=== PATIENT | male | born 1940 | race Caucasian/White ===

== ENCOUNTER 2019-04-22 11:28 | Inpatient (IN) ==
[2019-04-22] MEDS ORDERED: SODIUM CHLORIDE 0.9% 500 ML IV STA (12:07)
[2019-04-22 12:41] LABS: Basophils % 0.1 % (0.0-0.8); Hematocrit 44.4 VOL% (42.0-52.0); Hemoglobin 14.3 GM/DL (14.0-18.0); Immature Granulocytes % 0.8 %; Immature Granulocytes Absolute 0.12 #; Lymphocytes # 0.5 10*3/uL (1.4-4.0); Lymphocytes % 3.4 % (21.2-54.2); Mean Corpuscular HGB Conc 32.2 GM/DL (32-36); Mean Corpuscular Volume 91.4 FL (87-102); Mean Platelet Volume 9.8 FL (9.6-12.0); Monocytes % 5.1 % (1.7-12.7); Neutrophils % 90.6 % (38.7-73.9); Platelet Count 256 T/CUMM (130-400); Red Blood Count 4.86 MC/CUMM (3.8-5.5); Red Cell Distribution Width 14.2 % (9.3-17.3); White Blood Count 15.7 T/CUMM (4-12)
[2019-04-22 13:00] LABS: Albumin 4.2 G/DL (3.4-5.0); Bilirubin,Total 1.4 MG/DL (0.2-1.0); Osmolality,Calculated 286.3 MOS/KG (273-304); Total Protein 7.4 G/DL (6.4-8.3)
[2019-04-22 13:02] LABS: Band Neutrophils 10 % (0-10); Lymphocytes 2 % (20-55); Platelet Estimate Normal; Segmented Neutrophils 81 % (50-85); Total Cells Counted 100
[2019-04-22 13:03] LABS: Anisocytosis Slight; Macrocytosis Slight
[2019-04-22] MEDS ORDERED: DEXTROSE 50% 25 GM/50 ML VIAL IV STA (13:03)
[2019-04-22] MEDS ORDERED: DEXTROSE 50% 25 GM/50 ML SYRINGE IV ONE (13:06)
[2019-04-22 13:29] LABS: Apearance,Urine CLEAR (Clear); Bilirubin,Urine Negative (Negative); Blood, Urine Small mg/dL (Negative); Glucose,Urine (UA) Negative (Negative); Hyaline Casts,Urine 5 /LPF (0-3); Ketones,Urine 20 mg/dL (Negative); Mucus,Urine Occasional /LPF (Occasional); Nitrite,Urine Negative (Negative); Protein,Urine Negative; RBC,Urine 22 /HPF (0-4); Urine Color Yellow (Yellow); Urine Specific Gravity 1.014 (1.001-1.035); Urine Urobilinogen < 2.0 EU/DL (0.2-1.0); WBC,Urine 5 /HPF (0-6)
[2019-04-22] MEDS ORDERED: ONDANSETRON 4 MG/2 ML VIAL IV PRN (16:04)
[2019-04-22] MEDS ORDERED: ACETAMINOPHEN 325 MG TABLET PO PRN (16:04)
[2019-04-22] MEDS: SODIUM CHLORIDE 0.9% 1,000 ML IV SCH (19:39)
[2019-04-22] MEDS: DONEPEZIL 10 MG TABLET PO SCH (21:36)
[2019-04-22] MEDS: rOPINIRole 1 MG TABLET PO SCH (21:36)
[2019-04-22] MEDS: MEMANTINE 10 MG TABLET PO SCH (21:37)
[2019-04-22] MEDS: QUEtiapine 25 MG TABLET PO SCH (21:37)
[2019-04-22] MEDS: TAMSULOSIN 0.4 MG CAPSULE PO SCH (21:39)
[2019-04-22] MEDS: MULTIVITAMIN (BEROCCA) TABLET PO SCH (21:39)
[2019-04-23] MEDS: SODIUM CHLORIDE 0.9% 1,000 ML IV SCH ×3 (03:33→19:58)
[2019-04-23 05:49] LABS: Basophils % 0.2 % (0.0-0.8); Eosinophils % 0.3 % (0.00-10.9); Immature Granulocytes % 0.7 %; Immature Granulocytes Absolute 0.08 #; Lymphocytes # 1.1 10*3/uL (1.4-4.0); Lymphocytes % 9.5 % (21.2-54.2); Mean Corpuscular HGB Conc 33.3 GM/DL (32-36); Mean Corpuscular Volume 90.4 FL (87-102); Mean Platelet Volume 10.1 FL (9.6-12.0); Monocytes % 9.8 % (1.7-12.7); Neutrophils % 79.5 % (38.7-73.9); Platelet Count 182 T/CUMM (130-400); Red Blood Count 3.65 MC/CUMM (3.8-5.5); Red Cell Distribution Width 14.4 % (9.3-17.3); White Blood Count 11.6 T/CUMM (4-12)
[2019-04-23 06:16] LABS: Calcium 8.1 MG/DL (8.5-10.1); Osmolality,Calculated 288.3 MOS/KG (273-304); Risk Ratio 1.78; Thyroid Stimulating Hormone 0.654 uIU/ml (0.358-3.74); Total Protein 5.9 G/DL (6.4-8.3)
[2019-04-23] MEDS: PANTOPRAZOLE 40 MG TABLET PO SCH (09:09)
[2019-04-23] MEDS: ENOXAPARIN 40 MG/0.4 ML SYRINGE SUBCUT SCH (09:09)
[2019-04-23] MEDS: rOPINIRole 1 MG TABLET PO SCH (21:15)
[2019-04-23] MEDS: TAMSULOSIN 0.4 MG CAPSULE PO SCH (21:15)
[2019-04-23] MEDS: QUEtiapine 25 MG TABLET PO SCH (21:17)
[2019-04-23] MEDS: DONEPEZIL 10 MG TABLET PO SCH (21:18)
[2019-04-23] MEDS: MULTIVITAMIN (BEROCCA) TABLET PO SCH (21:18)
[2019-04-23] MEDS: MEMANTINE 10 MG TABLET PO SCH (21:18)
[2019-04-24] MEDS: SODIUM CHLORIDE 0.9% 1,000 ML IV SCH (04:08)
[2019-04-24 04:11] VITALS: BP 120/50
[2019-04-24 05:13] LABS: Basophils % 0.3 % (0.0-0.8); Eosinophils # 0.1 10*3/uL (0.0-0.87); Eosinophils % 1.3 % (0.00-10.9); Hematocrit 30.4 VOL% (42.0-52.0); Immature Granulocytes % 0.4 %; Immature Granulocytes Absolute 0.03 #; Lymphocytes # 1.4 10*3/uL (1.4-4.0); Lymphocytes % 20.6 % (21.2-54.2); Mean Corpuscular HGB Conc 32.9 GM/DL (32-36); Mean Platelet Volume 10.2 FL (9.6-12.0); Monocytes % 11.1 % (1.7-12.7); Neutrophils % 66.3 % (38.7-73.9); Platelet Count 157 T/CUMM (130-400); Red Blood Count 3.34 MC/CUMM (3.8-5.5); Red Cell Distribution Width 14.6 % (9.3-17.3); White Blood Count 6.9 T/CUMM (4-12)
[2019-04-24 05:46] LABS: Albumin 2.6 G/DL (3.4-5.0); Bilirubin,Total 0.9 MG/DL (0.2-1.0); Calcium 8.1 MG/DL (8.5-10.1); Osmolality,Calculated 292.6 MOS/KG (273-304); Total Protein 5.4 G/DL (6.4-8.3)
[2019-04-24] MEDS: PANTOPRAZOLE 40 MG TABLET PO SCH (10:32)
[2019-04-24] MEDS: ENOXAPARIN 40 MG/0.4 ML SYRINGE SUBCUT SCH (10:32)
== END 2019-04-24 12:45 | disposition home or self-care (01) | DRG 641 ==
LOC: N.ED 11:28 → N.EDINP 15:40 → N.5E 17:12
PROVIDERS: ADMIT Internal Medicine; ATTEND Internal Medicine